=== PATIENT | female | born 1980 | race Two or more races ===

== ENCOUNTER 2018-02-07 11:41 | Outpatient (CLI) | payer OTHER | END 2018-02-07 11:54 | disposition home or self-care (01) | LOC: RX STUDY 11:41 | DX: N97.2 Female infertility of uterine origin (principal); N92.0 Excessive and frequent menstruation with regular cycle ==

== ENCOUNTER → 2024-05-02 | Outpatient (CLI) | payer OTHER | END | disposition home or self-care (01) | LOC: TOM 09:05 | DX: N97.1 Female infertility of tubal origin (principal) ==